=== PATIENT | female | born 1985 | race Caucasian/White ===

== ENCOUNTER → 2017-09-29 | Outpatient (CLI) | payer OTHER ==
[~2017-09-29] MED LIST: IBUP600 PO
== END ==
LOC: HPND 08:25
PROVIDERS: ATTEND Obstetrics & Gynecology
DX: O09.811 Supervision of pregnancy resulting from assisted reproductive technology, first trimester (principal); Z36.82 Encounter for antenatal screening for nuchal translucency
CPT/HCPCS: 36415; 76813

== ENCOUNTER → 2017-10-28 | Outpatient (CLI) | payer OTHER | LOC: HPND 08:17 | PROVIDERS: ATTEND Obstetrics & Gynecology | DX: O09.812 Supervision of pregnancy resulting from assisted reproductive technology, second trimester (principal) | CPT/HCPCS: 76815; 76817 ==

== ENCOUNTER → 2017-11-17 | Outpatient (CLI) | payer OTHER | LOC: HPND 07:54 | PROVIDERS: ATTEND Obstetrics & Gynecology | DX: Z36.9 Encounter for antenatal screening, unspecified (principal); O09.812 Supervision of pregnancy resulting from assisted reproductive technology, second trimester | CPT/HCPCS: 76811; 76817 ==

== ENCOUNTER → 2017-12-01 | Outpatient (CLI) | payer OTHER | LOC: HPND 11:47 | PROVIDERS: ATTEND Obstetrics & Gynecology | DX: O98.512 Other viral diseases complicating pregnancy, second trimester (principal); O09.812 Supervision of pregnancy resulting from assisted reproductive technology, second trimester | CPT/HCPCS: 76815; 76817 ==

== ENCOUNTER → 2017-12-15 | Outpatient (CLI) | payer OTHER | LOC: HPND 08:23 | PROVIDERS: ATTEND Obstetrics & Gynecology | DX: O09.819 Supervision of pregnancy resulting from assisted reproductive technology, unspecified trimester (principal) | CPT/HCPCS: 76816; 76817; 76821; 76825; 76827; 93325 ==

== ENCOUNTER 2018-04-09 23:18 | Inpatient (IN) ==
[2018-04-09] MEDS ORDERED: Citric Acid/Sodium Citrate Liq 30 ML UDC PO SCH (23:45)
--- NOTE | 2018-04-09 23:53 | ED ---
History of Present Illness Primary Care Physician: Helio Suero History of Present Illness: 33-year-old 4 para 2 AB 1 at 39-6/7 weeks gestation who comes tonight with complaint of ruptured membranes. She has had some mild contractions throughout the day. She denies bleeding and reports good movement. Obstetrical history: 2 prior vaginal deliveries, one SAB. Her current is a surragacy. - Inpatient Certification I certify that the inpatient services were ordered in accordance with Medicare regulations governing the order. This includes certification that hospital inpatient services are reasonable and necessary and in the case of services not specified as inpatient-only under 42 CFR 419.22(n), that they are appropriately provided as inpatient services in accordance to with the 2-midnight benchmark under 43 CFR 412.3(e) Review of Systems All other systems reviewed negative except as stated in HPI PMFSH - History History Provided By: Patient - Medical / Surgical Hx Neg / Unobtainable Medical Problems Denied: Yes Surgical History: No Previous Surgery - Family History Family History: Family History (Last Updated 04/06/18 @ 10:34 by Maranda Ambrose MD, R2) Other No significant family history - Social History I have reviewed the patient's Social History: Yes - Tobacco History Tobacco Use In Past 30 Days: No Smoking Status: Never smoker - Alcohol History How Often Do You Have a Drink Containing Alcohol: Never - Travel History History of Recent Travel: No Recent Travel in the [place] Within the Last 8 Weeks: No Recent Travel Out of the Country Within the Last 8 Weeks: No Medications and Allergies Allergies Allergy/AdvReac Type Severity Reaction Status Date / Time No Known Allergies Allergy none Uncoded 04/06/18 10:13 Home Medications Medication Instructions Recorded Confirmed Type [id number] acid 1 tab PO DAILY 04/06/18 04/06/18 History [PreNata] Exam Narrative: GENERAL: Well-nourished, well-developed patient. SKIN: Warm and dry. HEAD: Normocephalic and atraumatic. EYES: No scleral icterus. No injection or drainage. ENT: No nasal drainage noted. Mucous membranes pink. Airway patent. NECK: Supple, trachea midline. No JVD. CARDIOVASCULAR: Regular rate and rhythm without murmurs, gallops, or rubs. RESPIRATORY: Breath sounds equal bilaterally. No accessory muscle use. ABDOMEN/GI: Abdomen soft, non-tender, bowel sounds present, no rebound, no guarding Gravid to [-] weeks size Fundal Height: [-] GENITOURINARY: External Genitalia: intact and normal in appearance BUS glands: [-Negative] Cervix: [-] Dilatation: [-3] Effacement: [-80] Station: [--3] Presentation: [-vtx] Membranes: [ruptured] Uterine Contractions: [-irreg] FHT's: Category: [1-] Baseline: [-] Reactive: [y-] Variability: [-] Decels: [-] EXTREMITIES: No cyanosis or edema. BACK: Nontender without obvious deformity. No CVA tenderness. NEUROLOGICAL: Awake and alert. Motor and sensory grossly within normal limits. Five out of 5 muscle strength in all muscle groups. Normal speech. Assessment and Plan - Plan Assessment: Term intrauterine with ruptured membranes, #2 GBS positive , #3 surrogate Plan: Admit for labor management including GBS prophylaxis. Discharge Plan - Discharge Disposition Patient Disposition: 30 Still Patient - Physicians Team ED Provider: Shar Parekh Primary Care Provider: Helio Suero
[2018-04-09] MEDS ORDERED: Sodium Chlor 0.9% Inj 500 ML IV.SIG PRN (23:54)
[2018-04-09] MEDS ORDERED: Naloxone Inj 0.4 MG/ML Vial IV.PUSH PRN (23:54)
[2018-04-09] MEDS ORDERED: Oxytocin 30 Units/500ml Premix 30 UNITS/500 ML BAG IV.SIG ONE (23:54)
[2018-04-09] MEDS ORDERED: Penicillin G Potassium Inj 5,000,000 UNIT in Sodium Chloride 0.9% Inj 100 ML IV.SIG ONE (23:54)
[2018-04-09] MEDS ORDERED: fentaNYL Citrate Inj 100 MCG/2 ML Ampul IV.PUSH PRN ×2 (23:54)
[2018-04-09] MEDS ORDERED: Oxytocin 30 Units/500ml Premix 30 UNITS/500 ML BAG IV.SIG PRN (23:56)
[2018-04-10 01:47] LABS: Baso % (Auto) 0.3 % (0.0-2.0); Bilirubin,Urine Negative (Negative); Clarity,Urine Clear (Clear); Color,Urine Straw (Yellw/Straw); Eos % (Auto) 0.4 % (0.0-4.0); Glucose,Urine (UA) Negative (Negative); Hematocrit 35.1 % (35.0-46.0); Hemoglobin 11.8 gm/dL (11.6-15.3); Leukocyte Esterase,Urine Trace (Negative); Lymph # (Auto) 2.2 th/mm3 (1.0-4.8); Lymph % (Auto) 22.4 % (9.0-44.0); Mean Corpuscular HGB Conc 33.6 % (32.0-36.0); Mean Corpuscular Hemoglobin 28.9 pg (27.0-34.0); Mean Corpuscular Volume 86.1 fL (80.0-100.0); Mean Platelet Volume 8.4 fL (7.0-11.0); Mono # (Auto) 0.6 th/mm3 (0.0-0.9); Mono % (Auto) 6.6 % (0.0-8.0); Mucus,Urine Few /lpf (Occasional); Neut # (Auto) 6.9 th/mm3 (1.8-7.7); Neut % (Auto) 70.3 % (16.0-70.0); Nitrite,Urine Negative (Negative); Platelet Count 230 th/mm3 (150-450); Red Blood Count 4.07 mil/mm3 (4.00-5.30); Specific Gravity,Urine 1.003 (1.002-1.035); Squamous Epithelial Cell,Urine <1 /hpf (0-5); White Blood Count 9.8 th/mm3 (4.0-11.0)
[2018-04-10 01:49] LABS: Amphetamine Screen,Urine Neg (Neg); Barbiturate Screen,Urine Neg (Neg); Cannabinoid Screen,Urine Neg (Neg); Cocaine Screen,Urine Neg (Neg)
[2018-04-10 01:57] LABS: Opiate Screen,Urine Neg (Neg)
[2018-04-10] MEDS ORDERED: fentaNYL 2MCG-Bupiv 0.125% Epi 150 ML EPIDURAL ONE (04:11)
[2018-04-10] MEDS: Penicillin G Potassium Inj 2,500,000 UNIT in Sodium Chlor 0.9% Inj 100 ML IV.SIG SCH ×3 (04:27→12:36)
[2018-04-10] MEDS ORDERED: Bupivacaine PF 0.25% Inj 10 ML Vial ONE (05:12)
[2018-04-10] MEDS ORDERED: Lidocaaine 1.5%/Epinephrine 1:200,000 PF Inj 5 ML Amp ONE (05:13)
[2018-04-10] MEDS ORDERED: Lidocaine PF 1% Inj 5 ML Vial ONE (05:13)
[2018-04-10] MEDS ORDERED: fentaNYL Citrate Inj 100 MCG/2 ML Ampul EPIDURAL ONE (05:59)
[2018-04-10] MEDS: fentaNYL 2MCG-Bupiv 0.125% Epi 150 ML EPIDURAL PRN ×2 (08:35→09:44)
--- NOTE | 2018-04-10 09:34 | P.OBLABOR ---
Subjective Interval history: Patient doing well. Surrogate No other complaints Objective Vital Signs: Vital Signs - 8 hr 04/10/18 02:17 04/10/18 03:00 04/10/18 04:30 Temperature 97.7 F Pulse Rate 90 95 H Respiratory Rate 18 18 18 Blood Pressure 126/74 127/78 04/10/18 05:02 04/10/18 05:11 04/10/18 05:20 Temperature 97.6 F Pulse Rate 89 109 H Respiratory Rate Blood Pressure 130/82 04/10/18 05:22 04/10/18 05:25 04/10/18 05:35 Temperature Pulse Rate 97 H 95 H 108 H Respiratory Rate Blood Pressure 130/81 134/85 138/89 04/10/18 05:37 04/10/18 05:40 04/10/18 05:41 Temperature Pulse Rate 94 H 92 H Respiratory Rate 18 Blood Pressure 132/83 139/81 04/10/18 05:45 04/10/18 05:50 04/10/18 06:00 Temperature Pulse Rate 96 H 101 H 100 H Respiratory Rate Blood Pressure 141/83 H 130/82 134/80 04/10/18 06:05 04/10/18 06:15 04/10/18 06:25 Temperature Pulse Rate 96 H 93 H 92 H Respiratory Rate Blood Pressure 126/84 130/80 126/87 04/10/18 06:30 04/10/18 06:35 04/10/18 06:40 Temperature Pulse Rate 84 87 Respiratory Rate 18 Blood Pressure 04/10/18 06:50 04/10/18 07:00 04/10/18 07:10 Temperature Pulse Rate 87 86 87 Respiratory Rate Blood Pressure 132/93 H 04/10/18 07:13 04/10/18 07:15 04/10/18 07:25 Temperature 98.1 F Pulse Rate 96 H 91 H Respiratory Rate 18 Blood Pressure 04/10/18 07:30 04/10/18 07:35 04/10/18 08:00 Temperature Pulse Rate 90 92 H 90 Respiratory Rate Blood Pressure 111/64 04/10/18 08:11 04/10/18 09:24 04/10/18 09:25 Temperature Pulse Rate 89 85 Respiratory Rate 18 18 Blood Pressure 116/60 128/77 04/10/18 09:28 Temperature 99.2 F Pulse Rate Respiratory Rate Blood Pressure Objective: Pelvic Exam: Cervix: posterior Dilatation: 4 Effacement: 60 Station: -3 Presentation: - Membranes: SROM Uterine Contractions: every 1-3 min FHT's: Category: 1 Baseline: 120 Reactive: yes Variability: moderate Decels: variable Assessment and Plan - Plan 33 yr old at 40 weeks in labor -FHTs: category 1, reassuring -Cervix: 4/60/-3 -surrogate -GBS positive, treat with PCN ppx -Anticipate vaginal delivery - Attending Attestation The exam, history, and the medical decision-making described in the above note were completed with the assistance of the resident physician. I reviewed and agree with the findings presented. I attest that I had a [id number] encounter with the patient on the same day, and personally performed and documented my assessment and findings in the medical record.
[2018-04-10] MEDS: Sod Chloride 0.9% Inj 1,000 ML IV.CONT PRN ×2 (09:44→12:36)
--- NOTE | 2018-04-10 13:11 | P.OBLABOR ---
Subjective Interval history: Patient doing well No complaints Objective Vital Signs: Vital Signs - 8 hr 04/10/18 05:11 04/10/18 05:20 04/10/18 05:22 Temperature Pulse Rate 89 109 H 97 H Respiratory Rate Blood Pressure 130/82 130/81 04/10/18 05:25 04/10/18 05:35 04/10/18 05:37 Temperature Pulse Rate 95 H 108 H Respiratory Rate 18 Blood Pressure 134/85 138/89 04/10/18 05:40 04/10/18 05:41 04/10/18 05:45 Temperature Pulse Rate 94 H 92 H 96 H Respiratory Rate Blood Pressure 132/83 139/81 141/83 H 04/10/18 05:50 04/10/18 06:00 04/10/18 06:05 Temperature Pulse Rate 101 H 100 H 96 H Respiratory Rate Blood Pressure 130/82 134/80 126/84 04/10/18 06:15 04/10/18 06:25 04/10/18 06:30 Temperature Pulse Rate 93 H 92 H Respiratory Rate 18 Blood Pressure 130/80 126/87 04/10/18 06:35 04/10/18 06:40 04/10/18 06:50 Temperature Pulse Rate 84 87 87 Respiratory Rate Blood Pressure 04/10/18 07:00 04/10/18 07:10 04/10/18 07:13 Temperature 98.1 F Pulse Rate 86 87 Respiratory Rate 18 Blood Pressure 132/93 H 04/10/18 07:15 04/10/18 07:25 04/10/18 07:30 Temperature Pulse Rate 96 H 91 H 90 Respiratory Rate Blood Pressure 111/64 04/10/18 07:35 04/10/18 08:00 04/10/18 08:11 Temperature Pulse Rate 92 H 90 89 Respiratory Rate 18 Blood Pressure 116/60 04/10/18 09:24 04/10/18 09:25 04/10/18 09:28 Temperature 99.2 F Pulse Rate 85 Respiratory Rate 18 Blood Pressure 128/77 04/10/18 10:26 04/10/18 10:27 04/10/18 10:29 Temperature Pulse Rate 96 H 99 H Respiratory Rate 18 Blood Pressure 148/93 H 136/86 04/10/18 11:33 04/10/18 12:32 04/10/18 12:33 Temperature 98.7 F Pulse Rate 105 H 108 H Respiratory Rate 18 18 Blood Pressure 125/81 126/86 Objective: Pelvic Exam: Cervix: midposition Dilatation: 8 Effacement: 100 Station: -3 Presentation: - Membranes: SROM Uterine Contractions: every 1-2 min FHT's: Category: 1 Baseline: 130 Reactive: yes Variability: moderate Decels: none Assessment and Plan - Plan 33 yr old at 40 weeks in labor -FHTs: category 1, reassuring -Cervix: 8/100/-3 -surrogate -GBS positive, treat with PCN ppx -Anticipate vaginal delivery
--- NOTE | 2018-04-10 13:38 | P.OBDELI ---
Anesthesia: Epidural Episiotomy: none Vaginal Delivery: Normal Presentation: Occiput anterior Nuchal Cord: None Delayed Cord Clamping (45 sec): Yes Placenta: Spontaneous delivery Laceration: Vaginal (vulvar laceration, nonbleeding, superficial, 1 deg, did not require stiches) : Male Male A Delivery Date: 04/10/18 Delivery Time: 13:24 Weight: 3.24 kg score (1 min): 9 score (5 min): 9 Additional Information: Delivered by Dr. Ma Supervised by Dr. Gupta and Dr. Carmichael
[2018-04-10] MEDS ORDERED: Acetaminophen 325 MG Tablet PO PRN (13:41)
[2018-04-10] MEDS ORDERED: Witch Hazel 50%/Glyderin 12.5% 40 Pad Jar RECTAL PRN (13:41)
[2018-04-10] MEDS ORDERED: Oxytocin 30 Units/500ml Premix 30 UNITS/500 ML BAG IV.CONT PRN (13:41)
[2018-04-10] MEDS ORDERED: Naloxone Inj 0.4 MG/ML Vial IV.PUSH PRN (13:41)
[2018-04-10] MEDS ORDERED: Benzocaine 20% Top Spray 60 ML Can TOPICAL PRN (13:41)
[2018-04-10] MEDS ORDERED: Bisacodyl 10 MG Supp RECTAL PRN (13:41)
[2018-04-10] MEDS ORDERED: Zolpidem Tartrate 5 MG Tablet PO PRN (13:41)
[2018-04-10] MEDS ORDERED: Diphtheria/Tetanus/Pertussis Vaccine Inj 0.5 ML Syringe IM ONE (16:00)
[2018-04-10] MEDS ORDERED: Measles/Mumps/Rubella Vaccine Inj 0.5 ML Vial SQ ONE (16:00)
[2018-04-10] MEDS ORDERED: Methylergonovine Inj 0.2 MG/ML Ampul ONE (18:56)
[2018-04-10] MEDS: Senna/Docusate Sodium 8.6/50 MG Tablet PO SCH (21:31)
[2018-04-11 06:03] LABS: Baso % (Auto) 0.2 % (0.0-2.0); Eos % (Auto) 0.5 % (0.0-4.0); Hematocrit 28.5 % (35.0-46.0); Hemoglobin 9.5 gm/dL (11.6-15.3); Lymph % (Auto) 39.7 % (9.0-44.0); Mean Corpuscular HGB Conc 33.4 % (32.0-36.0); Mean Corpuscular Hemoglobin 28.9 pg (27.0-34.0); Mean Corpuscular Volume 86.6 fL (80.0-100.0); Mean Platelet Volume 7.8 fL (7.0-11.0); Mono # (Auto) 0.4 th/mm3 (0.0-0.9); Mono % (Auto) 5.3 % (0.0-8.0); Neut # (Auto) 4.1 th/mm3 (1.8-7.7); Neut % (Auto) 54.3 % (16.0-70.0); Platelet Count 206 th/mm3 (150-450); Red Cell Distribution Width 13.9 % (11.6-17.2); White Blood Count 7.6 th/mm3 (4.0-11.0)
[2018-04-11] MEDS: Senna/Docusate Sodium 8.6/50 MG Tablet PO SCH (09:38)
--- NOTE | 2018-04-11 09:40 | P.PNOB ---
Subjective Post day: 1 Interval history: Patient is a 33-year-old delivered at 40 weeks. Patient is day 1 after NVD. Patient's pain is well-controlled. Patient reports minimal bleeding. Patient reports eating and drinking without any nausea or vomiting. Patient has passed gas but has not had a bowel movement. Patient denies chest pain and shortness of breath. Patient has been ambulating; she denies lower extremity pain. Of note, is surrogacy. Objective Vital Signs/I&O: Vital Signs 04/10/18 10:26 04/10/18 10:27 04/10/18 10:29 Temperature Pulse Rate 96 H 99 H Respiratory Rate 18 Blood Pressure 148/93 H 136/86 04/10/18 11:33 04/10/18 12:32 04/10/18 12:33 Temperature 98.7 F Pulse Rate 105 H 108 H Respiratory Rate 18 18 Blood Pressure 125/81 126/86 04/10/18 13:45 04/10/18 14:00 04/10/18 14:30 Temperature Pulse Rate 102 H 108 H 107 H Respiratory Rate 18 18 Blood Pressure 134/79 137/93 H 135/80 04/10/18 14:32 04/10/18 14:51 04/10/18 15:00 Temperature 98.3 F Pulse Rate 119 H 107 H Respiratory Rate 18 18 Blood Pressure 115/91 H 123/83 04/10/18 15:08 04/10/18 16:56 04/10/18 17:53 Temperature 98.9 F Pulse Rate 101 H 90 Respiratory Rate 18 16 18 Blood Pressure 123/84 158/90 H 04/10/18 18:00 04/10/18 18:06 04/10/18 18:10 Temperature Pulse Rate 123 H 118 H 118 H Respiratory Rate Blood Pressure 148/89 H 146/80 H 138/86 04/10/18 18:45 04/10/18 18:49 04/10/18 18:50 Temperature Pulse Rate 100 H 97 H Respiratory Rate 18 Blood Pressure 144/75 H 138/92 H 04/11/18 00:00 Temperature 97.8 F Pulse Rate 16 L Respiratory Rate 16 Blood Pressure 134/88 Result Diagrams: 04/11/18 05:15 Objective Remarks: GENERAL: Well-nourished, well-developed patient. CARDIOVASCULAR: Regular rate and rhythm without murmurs, gallops, or rubs. RESPIRATORY: Breath sounds equal bilaterally. No accessory muscle use. ABDOMEN/GI: Abdomen soft, non-tender. Fundus: Firm, non-tender at umbilicus. GENITOURINARY: Light to moderate bleeding. EXTREMITIES: No cyanosis or edema, non-tender, without signs of DVT. Medications and IVs: Active Medications Acetaminophen (Tylenol) 650 mg PO Q4H PRN PRN Reason: PAIN SCALE 1 TO 2 Last Admin: 04/10/18 15:00 Dose: 650 mg Al Hydroxide/Mg Hydroxide (Milk Of Magnesia Liq) 30 ml PO Q12H PRN PRN Reason: Mild Constipation Benzocaine (Americaine 20% [place]) 1 spray TOPICAL Q4H PRN PRN Reason: For Perineum Discomfort Last Admin: 04/10/18 17:20 Dose: 1 spray Bisacodyl (Dulcolax Supp) 10 mg RECTAL DAILY PRN PRN Reason: SEVERE CONSITIPATION Citric Acid/Sodium Citrate (Sodium Citrate/Citric Acid Liq) 30 ml PO [employer] [facility] Stop: 04/13/18 23:44 Last Admin: 04/10/18 08:35 Dose: 30 ml Fentanyl Citrate (Fentanyl Inj) 50 mcg IV.PUSH Q1H PRN PRN Reason: Pain Scale 3 - 5 Fentanyl Citrate (Fentanyl Inj) 100 mcg IV.PUSH Q1H PRN PRN Reason: PAIN SCALE 6 TO 10 Lactated Ringer's (Lr 1000 Ml Inj) 1,000 mls @ 125 mls/hr IV.CONT .Q8H [facility] Last Admin: 04/11/18 04:00 Dose: 125 mls/hr Lactated Ringer's (Lr 1000 Ml Inj) 1,000 mls @ 3,000 mls/hr IV.SIG UNSCH PRN PRN Reason: compromise or epidural Last Admin: 04/10/18 05:27 Dose: 3,000 mls/hr Sodium Chloride (Ns Inj) 1,000 mls @ 100 mls/hr IV.CONT .Q10H PRN PRN Reason: SEE LABEL COMMENTS Last Admin: 04/10/18 12:36 Dose: 100 mls/hr Penicillin G Potassium 2,500, (000 unit/ Sodium Chloride) 100 mls @ 200 mls/hr IV.SIG Q4H [facility] Last Admin: 04/10/18 12:36 Dose: 200 mls/hr Sodium Chloride (Ns Inj) 500 mls @ 1,000 mls/hr IV.SIG UNSCH PRN PRN Reason: SEE LABEL COMMENTS Oxytocin (Pitocin 30 Units/Ns 500 Ml Premix) 30 units in 500 mls @ 2 mls/hr IV.SIG TITRATE PRN; Protocol PRN Reason: For induction of labor Last Admin: 04/10/18 05:04 Dose: 2 milliunit/min, 2 mls/hr Fentanyl/Bupivacaine/Sodium Chlor (Fentanyl 2 Mcg-Bupiv 0.125% Epi) 150 mls @ 10 mls/hr EPIDURAL PRN PRN PRN Reason: for Labor Pain Last Admin: 04/10/18 09:44 Dose: 10 mls/hr Oxytocin (Pitocin 30 Units/Ns 500 Ml Premix) 30 units in 500 mls @ 100 mls/hr IV.CONT UNSCH PRN PRN Reason: Heavy bleeding Last Admin: 04/10/18 17:56 Dose: 100 mls/hr Ibuprofen (Motrin) 800 mg PO Q8H PRN PRN Reason: For Cramping Lactulose (Lactulose Liq) 30 ml PO DAILY PRN PRN Reason: SEVERE CONSITIPATION Lidocaine HCl (Xylocaine 1% Inj) 0.1 ml I-DERMAL PRN PRN PRN Reason: For IV start Stop: 04/12/18 23:53 Lidocaine HCl (Xylocaine 1% Inj) 10 ml INFILTRATN PRN PRN PRN Reason: For episiotomy repair Stop: 04/11/18 23:53 Mineral Oil (Muri-Lube Oil) 10 ml TOPICAL PRN PRN PRN Reason: PRN perineal massage Naloxone HCl (Narcan Inj) 0.1 mg IV.PUSH Q2M PRN PRN Reason: for opiate reversal Naloxone HCl (Narcan Inj) 0.1 mg IV.PUSH Q2M PRN PRN Reason: for opiate reversal Ondansetron HCl (Zofran Inj) 4 mg IV.PUSH Q6H PRN PRN Reason: NAUSEA OR VOMITING Ondansetron HCl (Zofran Odt) 4 mg PO Q6H PRN PRN Reason: NAUSEA OR VOMITING Oxycodone/Acetaminophen (Percocet 5/325 Mg) 1 tab PO Q4H PRN PRN Reason: PAIN SCALE 3 TO 5 Last Admin: 04/11/18 08:15 Dose: 1 tab Oxycodone/Acetaminophen (Percocet 5/325 Mg) 2 tab PO Q4H PRN PRN Reason: PAIN SCALE 6 TO 10 Senna/Docusate Sodium (Neelima-Colace) 1 tab PO BID [facility] Last Admin: 04/10/18 21:31 Dose: 1 tab Sennosides (Senokot) 17.2 mg PO Q12H PRN PRN Reason: Moderate Constipation Sodium Chloride (Ns Flush) 2 ml IV.FLUSH BID [facility] Last Admin: 04/10/18 21:33 Dose: Not Given Sodium Chloride (Ns Flush) 2 ml IV.FLUSH PRN PRN PRN Reason: FLUSH AFTER USING IV ACCESS Witch Sena/Glycerin (Tucks Pads) 1 applicatio RECTAL QID PRN PRN Reason: HEMORRHOIDS Last Admin: 04/10/18 17:21 Dose: 1 applicatio Zolpidem Tartrate (Ambien) 5 mg PO HS PRN PRN Reason: SLEEP Assessment and Plan - Diagnosis (1) Vaginal delivery Code(s): O80 - Encounter for full-term uncomplicated delivery Status: Acute (2) Anemia Code(s): D64.9 - Anemia, unspecified Status: Acute - Plan Patient is a 33-year-old delivered at 40 weeks. Patient is day 1 after NVD. Patient's pain is well-controlled. Continue routine care. Motrin and Percocet when necessary for pain. Encourage OOB. Anemia asymptomatic. Will monitor. Pelvic rest for 6 weeks will need follow-up appointment at that time. Anticipate discharge tomorrow. [email or web address] OB hospitalist.
[2018-04-11 10:53] VITALS: RESP 18
[2018-04-11 20:11] VITALS: BP 121/66; PULSE 86; TEMP 98.2
== END 2018-04-11 20:00 | disposition home or self-care (01) ==
LOC: HOBED 23:18 → H2E 23:45 → H1EA 04-10 15:14
PROVIDERS: ADMIT Obstetrics & Gynecology; ATTEND Obstetrics & Gynecology